=== PATIENT | female | born 1975 | race Caucasian/White ===

== ENCOUNTER → 2016-10-31 | Outpatient (CLI) | payer OTHER, BC ==
[~2016-10-31] MED LIST: BCP PO; CHOL100010 PO; CYAN500T PO; MAGNTAB4 PO; MISCCAP80 PO; OMEG10007 PO
[2016-11-10 08:46] LABS: CRYPTOSPORIDIUM AG TC 37213 NOT DETECTED (NOT DETECTED); O&P SOURCE OTHER-STOOL
--- NOTE | 2016-12-13 07:58 | CODING QUERY NO DIAGNOSIS ---
TREATMENT RENDERED WITHOUT A DIAGNOSIS 76 To promote full compliance with coding requirements relating to patient care, physician participation is requested in all cases of entrepreneur uncertainty. Please assist us with providing a diagnosis/symptom for the test(s) below: A diagnosis/symptom was not documented on your Order. A valid diagnosis/symptom is required to bill all insurances. Please remember that we are unable to code a diagnosis of rule out, probable, possible, questionable, or suspected. DOS 10/31/16 Tests that require a diagnosis: * CRYPTOSPORIDIUM AG DIAGNOSIS: * STOOL CULTURE DIAGNOSIS: * WBC SMEAR-STOOL DIAGNOSIS: * CDIFF TOXIN B GENE DIAGNOSIS: Provider Signature: Date: Thank you Lu[facility] Information [facility] Once completed, please kindly fax back to [phone] For questions please call [phone]
== END | disposition home or self-care (01) ==
LOC: C.LABSPEC 18:45
PROVIDERS: ATTEND Family Medicine
DX: R19.7 Diarrhea, unspecified (principal)

== ENCOUNTER → 2016-11-09 | Outpatient (CLI) | payer OTHER, BC ==
--- NOTE | 2016-11-09 07:57 | DIAGNOSTIC IMAGING REPORT ---
ABDOMEN COMPLETE (US) CLINICAL HISTORY: Abdominal pain. COMPARISON STUDY: Abdominal ultrasound June 11, 2013. FINDINGS: Liver is sonographically normal. There is no biliary ductal dilatation. There is a 5 mm nonmobile echogenic structure without associated shadowing within the gallbladder consistent with a polyp. There is no gallbladder wall thickening. Pancreas is sonographically normal. Size of the spleen is normal, measuring 10.2 cm in maximal dimension. The right kidney measures 10.8 cm and the left 10.7 cm. There is no hydronephrosis. The caliber of the abdominal aorta is normal. Visualized portions of the IVC are patent. IMPRESSION: 1. 5 mm nonmobile nonshadowing structure within the gallbladder which favors a polyp. A gallstone could appear similar but is considered less likely. No gallbladder wall thickening. 2. Otherwise, normal abdominal ultrasound. Electronically signed by: Josse English M.D. 11/09/2016 7:56 AM Dictated Date/Time: 11/09/2016 7:53 AM
== END | disposition home or self-care (01) ==
LOC: C.ULTR 07:05
PROVIDERS: ATTEND Family Medicine
DX: R10.84 Generalized abdominal pain (principal)

== ENCOUNTER → 2016-11-26 | Outpatient (CLI) | payer OTHER, BC ==
[2016-12-03 12:36] LABS: CRYPTOSPORIDIUM AG TC 37213 NOT DETECTED (NOT DETECTED); O&P SOURCE OTHER-STOOL
== END | disposition home or self-care (01) ==
LOC: C.LABSPEC 11:10
PROVIDERS: ATTEND Family Medicine
DX: R19.7 Diarrhea, unspecified (principal)